=== PATIENT | male | born 1955 | race Caucasian/White ===

== ENCOUNTER 2019-04-17 13:27 | Observation (INO) | payer BC ==
--- NOTE | 2019-04-17 13:52 | EDM.PDOC ---
ED HPI GENERAL MEDICAL PROBLEM - General Chief Complaint: Neurological Problem Stated Complaint: MEMORY LOSS Time Seen by Provider: 04/17/19 13:32 Source of Information: Reports: Patient History Limitations: Reports: No Limitations - History of Present Illness INITIAL COMMENTS - FREE TEXT/NARRATIVE: History of present illness: []Patient arrived with acute memory loss. His boss and he cannot remember details of today. 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 Patient denies any chest pain, headache, dizziness, blurry vision , shortness of breath, weakness or numbness or tingling. he does recall an incident similar to this happened in the past and he was told that he might have early signs of dementia but "not to worry about it". Review of systems: As per history of present illness and below otherwise all systems reviewed and negative. Past medical history: As per history of present illness and as reviewed below otherwise noncontributory. Surgical history: As per history of present illness and as reviewed below otherwise noncontributory. Social history: No reported history of drug or alcohol abuse. Family history: As per history of present illness and as reviewed below otherwise noncontributory. Physical exam: General: Well developed, well nourished in NAD HEENT: Atraumatic, normocephalic, pupils reactive, negative for conjunctival pallor or scleral icterus, mucous membranes moist, throat clear, neck supple, nontender, trachea midline. Lungs: Clear to auscultation, breath sounds equal bilaterally, chest nontender. Heart: S1S2, regular, negative for clicks, rubs, or JVD. Abdomen: NABS, Soft, nondistended, nontender. Negative for masses or hepatosplenomegaly. Negative for costovertebral tenderness. Pelvis: Stable nontender. Genitourinary: Deferred. Rectal: Deferred. Extremities: Atraumatic, negative for cords or calf pain. Neurovascular unremarkable. Neuro: Awake, alert, Cranial nerves II through XII unremarkable. Cerebellum unremarkable. Motor and sensory unremarkable throughout. Exam nonfocal. Skin:warm and dry Diagnostics: stroke code was initially called and canceled, CT head, CBC, chemistry, TSH, UA , troponin, EKG, chest x-ray were done Therapeutics: none ED Course: stable, consulted Dr. Krishnan who evaluated the patient in the ED and will insult on the patient after being admitted to the hospitalist service. MRI will be obtained Impression: transient global amnesia Prescriptions: none Plan: admit to [facility] Definitive disposition and diagnosis as appropriate pending reevaluation and review of above. - Related Data Allergies Allergy/AdvReac Type Severity Reaction Status Date / Time No Known Allergies Allergy Verified 04/17/19 13:50 Home Meds: Home Meds Levothyroxine Sodium [Synthroid] 137 mcg PO ACBREAKFAST 04/17/19 [History] ED ROS GENERAL - Review of Systems Review Of Systems: See Below ED EXAM, NEURO - Physical Exam Exam: See Below Course - Vital Signs Last Recorded V/S: Last Vital Signs Temp 97.3 F 04/17/19 14:51 Pulse 73 04/17/19 15:02 Resp 18 04/17/19 15:02 BP 152/90 H 04/17/19 15:02 Pulse Ox 97 04/17/19 15:02 - Orders/Labs/Meds Orders: Active Orders 24 hr Category Date Time Status Admission Status [Patient Status] [ADT] Stat ADT 04/17/19 14:16 Active Assess Neurological Status [RC] ASDIRECTED Care 04/17/19 13:55 Inactive Bedrest [RC] ASDIRECTED Care 04/17/19 13:55 Inactive Cardiac Monitoring [RC] . DIRECTED Care 04/17/19 13:55 Inactive Height and Weight [RC] UPON Care 04/17/19 13:55 Inactive Initiate Acute Stroke Protocol [RC] STAT Care 04/17/19 13:55 Inactive NIH Stroke Scale [RC] ASDIRECTED Care 04/17/19 13:55 Inactive Nursing Bedside Swallow Screen [RC] ASDIRECTED Care 04/17/19 13:55 Inactive Oxygen Therapy [RC] ASDIRECTED Care 04/17/19 13:55 Inactive Stroke Education, General [RC] Click to Edit Care 04/17/19 13:55 Inactive Vital Signs [RC] Q15M Care 04/17/19 13:55 Inactive Sodium Chloride 0.9% [Normal Saline] Med 04/17/19 13:55 Active 10 ml IV ASDIRECTED PRN Sodium Chloride 0.9% [Saline Flush] Med 04/17/19 13:55 Active 10 ml FLUSH ASDIRECTED PRN Sodium Chloride 0.9% [Saline Flush] Med 04/17/19 13:55 Active 2.5 ml FLUSH ASDIRECTED PRN Peripheral IV Insertion Adult [OM.PC] Stat Oth 04/17/19 13:55 Ordered Medication Orders Acetaminophen (Tylenol) 650 mg PO Q4H PRN PRN Reason: Pain (Mild 1-3)/fever Enoxaparin Sodium (Lovenox) 40 mg SUBCUT Q24H XIANG Ondansetron HCl (Zofran Odt) 4 mg PO Q4H PRN PRN Reason: nausea, able to take PO Ondansetron HCl (Zofran) 4 mg IVPUSH Q4H PRN PRN Reason: Nausea Levothyroxine Sodium (137 Mcg) 1 each PO ACBREAKFAST XIANG Sodium Chloride (Saline Flush) 10 ml FLUSH ASDIRECTED PRN PRN Reason: Keep Vein Open Last Admin: 04/17/19 14:17 Dose: 10 ml Sodium Chloride (Saline Flush) 2.5 ml FLUSH ASDIRECTED PRN PRN Reason: Keep Vein Open Last Admin: 04/17/19 14:17 Dose: 2.5 ml Sodium Chloride (Normal Saline) 10 ml IV ASDIRECTED PRN PRN Reason: IV Use Last Admin: 04/17/19 14:17 Dose: 10 ml Labs: Laboratory Tests 04/17/19 04/17/19 04/17/19 Range/Units 13:36 13:36 13:36 WBC 7.23 (4.0-11.0) K/uL RBC 4.75 (4.50-5.90) M/uL Hgb 15.1 (13.0-17.0) g/dL Hct 44.4 (38.0-50.0) % MCV 93.5 (80.0-98.0) fL MCH 31.8 (27.0-32.0) pg MCHC 34.0 (31.0-37.0) g/dL RDW Std Deviation 44.2 (28.0-62.0) fl RDW Coeff of Amy 13 (11.0-15.0) % Plt Count 334 (150-400) K/uL MPV 9.50 (7.40-12.00) fL Neut % (Auto) 53.7 (48.0-80.0) % Lymph % (Auto) 36.7 (16.0-40.0) % Lucas % (Auto) 8.0 (0.0-15.0) % Eos % (Auto) 1.2 (0.0-7.0) % Baso % (Auto) 0.4 (0.0-1.5) % Neut # (Auto) 3.9 (1.4-5.7) K/uL Lymph # (Auto) 2.7 H (0.6-2.4) K/uL Lucas # (Auto) 0.6 (0.0-0.8) K/uL Eos # (Auto) 0.1 (0.0-0.7) K/uL Baso # (Auto) 0.0 (0.0-0.1) K/uL Nucleated RBC % 0.0 /100WBC Nucleated RBCs # 0 K/uL INR 0.92 APTT 24.6 (18.6-31.3) SEC Sodium 141 (136-148) mmol/L Potassium 3.9 (3.5-5.1) mmol/L Chloride 103 (98-107) mmol/L Carbon Dioxide 28.9 (21.0-32.0) mmol/L BUN 9 (7.0-18.0) mg/dL Creatinine 1.1 (0.8-1.3) mg/dL Est Cr Clr Drug Dosing 77.19 mL/min Estimated GFR (MDRD) > 60.0 ml/min Glucose 90 (74-106) mg/dL Calcium 9.3 (8.5-10.1) mg/dL Total Bilirubin 0.8 (0.2-1.0) mg/dL AST 28 (15-37) IU/L ALT 27 (14-63) IU/L Alkaline Phosphatase 46 (46-116) U/L Troponin I < 0.050 (0.000-0.056) ng/mL Total Protein 8.3 H (6.4-8.2) g/dL Albumin 4.5 (3.4-5.0) g/dL Globulin 3.8 (2.6-4.0) g/dL Albumin/Globulin Ratio 1.2 (0.9-1.6) TSH 3rd Generation 1.46 (0.36-3.74) uIU/mL Ethyl Alcohol mg/dL 11/07/19 Range/Units 13:36 WBC (4.0-11.0) K/uL RBC (4.50-5.90) M/uL Hgb (13.0-17.0) g/dL Hct (38.0-50.0) % MCV (80.0-98.0) fL MCH (27.0-32.0) pg MCHC (31.0-37.0) g/dL RDW Std Deviation (28.0-62.0) fl RDW Coeff of Amy (11.0-15.0) % Plt Count (150-400) K/uL MPV (7.40-12.00) fL Neut % (Auto) (48.0-80.0) % Lymph % (Auto) (16.0-40.0) % Lucas % (Auto) (0.0-15.0) % Eos % (Auto) (0.0-7.0) % Baso % (Auto) (0.0-1.5) % Neut # (Auto) (1.4-5.7) K/uL Lymph # (Auto) (0.6-2.4) K/uL Lucas # (Auto) (0.0-0.8) K/uL Eos # (Auto) (0.0-0.7) K/uL Baso # (Auto) (0.0-0.1) K/uL Nucleated RBC % /100WBC Nucleated RBCs # K/uL INR APTT (18.6-31.3) SEC Sodium (136-148) mmol/L Potassium (3.5-5.1) mmol/L Chloride (98-107) mmol/L Carbon Dioxide (21.0-32.0) mmol/L BUN (7.0-18.0) mg/dL Creatinine (0.8-1.3) mg/dL Est Cr Clr Drug Dosing mL/min Estimated GFR (MDRD) ml/min Glucose (74-106) mg/dL Calcium (8.5-10.1) mg/dL Total Bilirubin (0.2-1.0) mg/dL AST (15-37) IU/L ALT (14-63) IU/L Alkaline Phosphatase (46-116) U/L Troponin I (0.000-0.056) ng/mL Total Protein (6.4-8.2) g/dL Albumin (3.4-5.0) g/dL Globulin (2.6-4.0) g/dL Albumin/Globulin Ratio (0.9-1.6) TSH 3rd Generation (0.36-3.74) uIU/mL Ethyl Alcohol <3 mg/dL Meds: Medications Generic Name Dose Route Start Last Admin Trade Name Freq PRN Reason Stop Dose Admin Acetaminophen 650 mg 04/17/19 15:15 Tylenol PO Q4H PRN Pain (Mild 1-3)/fever Enoxaparin Sodium 40 mg 04/17/19 15:15 Lovenox SUBCUT Q24H XIANG Ondansetron HCl 4 mg 04/17/19 15:15 Zofran Odt PO Q4H PRN nausea, able to take PO Ondansetron HCl 4 mg 04/17/19 15:15 Zofran IVPUSH Q4H PRN Nausea Levothyroxine Sodium 1 each 04/18/19 07:30 137 Mcg PO ACBREAKFAST XIANG Sodium Chloride 10 ml 04/17/19 13:55 04/17/19 14:17 Saline Flush FLUSH 10 ml ASDIRECTED PRN Administration Keep Vein Open Sodium Chloride 2.5 ml 04/17/19 13:55 04/17/19 14:17 Saline Flush FLUSH 2.5 ml ASDIRECTED PRN Administration Keep Vein Open Sodium Chloride 10 ml 04/17/19 13:55 04/17/19 14:17 Normal Saline IV 10 ml ASDIRECTED PRN Administration IV Use Departure - Departure Time of Disposition: 14:45 Disposition: Refer to Observation Condition: Good Clinical Impression: TGA (transient global amnesia) - Discharge Information *PRESCRIPTION DRUG MONITORING PROGRAM REVIEWED*: No *COPY OF PRESCRIPTION DRUG MONITORING REPORT IN PATIENT GAYATHRI: No - My Orders Last 24 Hours: My Active Orders 04/17/19 13:55 Assess Neurological Status [RC] ASDIRECTED Bedrest [RC] ASDIRECTED Cardiac Monitoring [RC] . DIRECTED Height and Weight [RC] UPON Initiate Acute Stroke Protocol [RC] STAT NIH Stroke Scale [RC] ASDIRECTED Nursing Bedside Swallow Screen [RC] ASDIRECTED Oxygen Therapy [RC] ASDIRECTED Stroke Education, General [RC] Click to Edit Vital Signs [RC] Q15M Sodium Chloride 0.9% [Normal Saline] 10 ml IV ASDIRECTED PRN Sodium Chloride 0.9% [Saline Flush] 10 ml FLUSH ASDIRECTED PRN Sodium Chloride 0.9% [Saline Flush] 2.5 ml FLUSH ASDIRECTED PRN Peripheral IV Insertion Adult [OM.PC] Stat 04/17/19 14:16 Admission Status [Patient Status] [ADT] Stat - Assessment/Plan Last 24 Hours: My Active Orders 04/17/19 13:55 Assess Neurological Status [RC] ASDIRECTED Bedrest [RC] ASDIRECTED Cardiac Monitoring [RC] . DIRECTED Height and Weight [RC] UPON Initiate Acute Stroke Protocol [RC] STAT NIH Stroke Scale [RC] ASDIRECTED Nursing Bedside Swallow Screen [RC] ASDIRECTED Oxygen Therapy [RC] ASDIRECTED Stroke Education, General [RC] Click to Edit Vital Signs [RC] Q15M Sodium Chloride 0.9% [Normal Saline] 10 ml IV ASDIRECTED PRN Sodium Chloride 0.9% [Saline Flush] 10 ml FLUSH ASDIRECTED PRN Sodium Chloride 0.9% [Saline Flush] 2.5 ml FLUSH ASDIRECTED PRN Peripheral IV Insertion Adult [OM.PC] Stat 04/17/19 14:16 Admission Status [Patient Status] [ADT] Stat
[2019-04-17] MEDS ORDERED: Sodium Chloride 0.9% 2.5 ML Syringe FLUSH PRN (13:55)
[2019-04-17] MEDS ORDERED: Sodium Chloride 0.9% 10 ML Syringe FLUSH PRN (13:55)
[2019-04-17] MEDS ORDERED: Sodium Chloride 0.9% 10 ML SDV IV PRN (13:55)
--- NOTE | 2019-04-17 14:01 | CT ---
INDICATION: stroke code, amnesia CT HEAD WITHOUT CONTRAST TECHNIQUE: Multiple axial CT images were performed through the head without intravenous contrast administration. COMPARISON: No previous studies are currently available for comparison. FINDINGS: No acute intracranial hemorrhage is identified. No extra-axial collections are evident and there is no mass effect or midline shift. Ventricles are normal in size and configuration. Brain parenchyma appears normal with unremarkable louis-white differentiation. Osseous structures are within normal limits and no fractures are seen. Included portions of the paranasal sinuses and mastoid air cells are normally aerated. IMPRESSION: Normal non-contrast head CT. Report called to Dr. Bain at 1:52pm 04/17/2019. PAUL SMITH MD [facility] Dictated by: Hieu Smith MD @ 04/17/2019 13:59:02 (Electronically Signed)
[2019-04-17 14:22] LABS: BLOOD UREA NITROGEN,BUN 9 mg/dL (7.0-18.0); CARBON DIOXIDE,CO2 28.9 mmol/L (21.0-32.0); CHLORIDE,CL 103 mmol/L (98-107); GLUCOSE RANDOM 90 mg/dL (74-106); POTASSIUM,K 3.9 mmol/L (3.5-5.1); SODIUM,NA 141 mmol/L (136-148)
--- NOTE | 2019-04-17 15:09 | PCM.CONS ---
H&P History of Present Illness - General Date of Service: 04/17/19 Admit Problem/Dx: Admission Diagnosis/Problem Admission Diagnosis/Problem Transient global amnesia - History of Present Illness Initial Comments - Free Text/Narative: He recalls having soup for dinner last night and going to bed early. Memory of this morning is spotty. Mostly, he does not recall. Altered mental status was noted by colleague. He feels well otherwise. No weakness, numbness, headache, balance problems. - Related Data Allergies/Adverse Reactions: Allergies Allergy/AdvReac Type Severity Reaction Status Date / Time No Known Allergies Allergy Verified 04/17/19 13:50 Home Medications: Home Meds Levothyroxine Sodium [Synthroid] 137 mcg PO ACBREAKFAST 04/17/19 [History] Past Medical History - Past Health History Medical/Surgical History: Denies Medical/Surgical History Endocrine/Metabolic History: Reports: Hypothyroidism Social & Family History - Family History Family Medical History: Noncontributory - Tobacco Use Smoking Status *Q: Never Smoker - Recreational Drug Use Recreational Drug Use: No H&P Review of Systems - Review of Systems: Review Of Systems: ROS reveals no pertinent complaints other than HPI. Exam - Exam Exam: See Below - Vital Signs Vital Signs: Last Vital Signs Temp 36.3 C 04/17/19 14:51 Pulse 73 04/17/19 15:02 Resp 18 04/17/19 15:02 BP 152/90 H 04/17/19 15:02 Pulse Ox 97 04/17/19 15:02 Weight: 97.432 kg - Exam Physical Exam Comments:: Constitutional: No acute distress Psychiatric: Mood/Affect: appears anxious Neurological: Mental Status: General: Normal activity, good hygiene, appropriate appearance. Level of consciousness: Awake, alert. Orientation: Oriented to person, place, time and situation. Concentration/Attention Span: Normal. Comprehension/Praxis: Able to perform a three step command. Fund of Knowledge/memory: Impaired recall of same day events. He had no recollection of instructions Dr. Bain had given him less than 30 minutes previously. He repeated some questions more than once. Language: Fluent and articulate without evidence of aphasia or dysarthria. Thought Content: Normal. Insight/Judgement: Normal. Cranial Nerves: Pupils equally round and reactive to light. Visual main full to confrontation. No neglect. Gaze conjugate, EOMI. Sensation intact and symmetric to light touch. Facial strength is full and symmetric. Palate elevates symmetrically. Normal shrug bilaterally. Tongue protrudes midline Motor: Normal tone in all groups. Power 5/5 throughout Sensation: Sensation is decreased vibratory sense at left great toe, intact right great toe and bilateral knees. Light touch intact, symmetric and without extinction. Deep tendon reflexes: 1+ at ankles, trace at knees, 1+ in upper limbs Coordination: Finger to nose, heel to badillo intact Gait: Negative romberg Eyes: non icteric, Mouth: moist mucus membranes Cardiovascular: RRR Respiratory: clear lungs GI: non tender Musculoskeletal: non tender Skin: no visible rash - Patient Data Lab Results Last 24 hrs: Laboratory Results - last 24 hr 04/17/19 04/17/19 04/17/19 Range/Units 13:36 13:36 13:36 WBC 7.23 (4.0-11.0) K/uL RBC 4.75 (4.50-5.90) M/uL Hgb 15.1 (13.0-17.0) g/dL Hct 44.4 (38.0-50.0) % MCV 93.5 (80.0-98.0) fL MCH 31.8 (27.0-32.0) pg MCHC 34.0 (31.0-37.0) g/dL RDW Std Deviation 44.2 (28.0-62.0) fl RDW Coeff of Amy 13 (11.0-15.0) % Plt Count 334 (150-400) K/uL MPV 9.50 (7.40-12.00) fL Neut % (Auto) 53.7 (48.0-80.0) % Lymph % (Auto) 36.7 (16.0-40.0) % [place] % (Auto) 8.0 (0.0-15.0) % Eos % (Auto) 1.2 (0.0-7.0) % Baso % (Auto) 0.4 (0.0-1.5) % Neut # (Auto) 3.9 (1.4-5.7) K/uL Lymph # (Auto) 2.7 H (0.6-2.4) K/uL [place] # (Auto) 0.6 (0.0-0.8) K/uL Eos # (Auto) 0.1 (0.0-0.7) K/uL Baso # (Auto) 0.0 (0.0-0.1) K/uL Nucleated RBC % 0.0 /100WBC Nucleated RBCs # 0 K/uL INR 0.92 APTT 24.6 (18.6-31.3) SEC Sodium 141 (136-148) mmol/L Potassium 3.9 (3.5-5.1) mmol/L Chloride 103 (98-107) mmol/L Carbon Dioxide 28.9 (21.0-32.0) mmol/L BUN 9 (7.0-18.0) mg/dL Creatinine 1.1 (0.8-1.3) mg/dL Est Cr Clr Drug Dosing 77.19 mL/min Estimated GFR (MDRD) > 60.0 ml/min Glucose 90 (74-106) mg/dL Calcium 9.3 (8.5-10.1) mg/dL Total Bilirubin 0.8 (0.2-1.0) mg/dL AST 28 (15-37) IU/L ALT 27 (14-63) IU/L Alkaline Phosphatase 46 (46-116) U/L Troponin I < 0.050 (0.000-0.056) ng/mL Total Protein 8.3 H (6.4-8.2) g/dL Albumin 4.5 (3.4-5.0) g/dL Globulin 3.8 (2.6-4.0) g/dL Albumin/Globulin Ratio 1.2 (0.9-1.6) TSH 3rd Generation 1.46 (0.36-3.74) uIU/mL Result Diagrams: 04/17/19 13:36 04/17/19 13:36 Consult PN Assessment/Plan (1) TGA (transient global amnesia) SNOMED Code(s): 701198190 Code(s): G45.4 - TRANSIENT GLOBAL AMNESIA Current Visit: Yes Assessment:: Assessment: Acute onset anterograde amnesia, likely TGA. Recommendations Admit for observation MRI brain w and w/o contrast Problem List Initiated/Reviewed/Updated: Yes
[2019-04-17] MEDS ORDERED: Acetaminophen 325 MG Tab PO PRN (15:15)
[2019-04-17] MEDS ORDERED: Ondansetron 4 MG/2 ML SDV IVPUSH PRN (15:15)
[2019-04-17] MEDS ORDERED: Enoxaparin 40 MG/0.4 ML Syringe SUBCUT SCH (15:15)
[2019-04-17] MEDS ORDERED: Ondansetron 4 MG Tab.DIS PO PRN (15:15)
--- NOTE | 2019-04-17 15:26 | PCM.HP.2 ---
H&P History of Present Illness - General Date of Service: 04/17/19 Admit Problem/Dx: Admission Diagnosis/Problem Admission Diagnosis/Problem Transient global amnesia - History of Present Illness Initial Comments - Free Text/Narative: 63 y/o male with history of hypothyroidism presenting today to the ER for memory problems. Patient states he does not recollect a specific time frame in the morning. He was brought to the ER by his co-worker. Patient states something similar like this happened before and he blames it on food poisoning. Today, he is alert and oriented to person, place, time and situation. CT head was negative for any intracranial hemorrhage. No focal neurological deficits on exam. He states he is from [place], [place]. His and family are there. Denies any trauma to head. No change in vision, nausea, vomiting, chest pain, dyspnea, abdominal pain, dysuria, diarrhea. No problems ambulating. Drinks alcohol occasionally. No smoking or illicit drug use. Denies any family history of Parkinson's or Alzheimer's. No visual or auditory hallucinations. - Related Data Allergies/Adverse Reactions: Allergies Allergy/AdvReac Type Severity Reaction Status Date / Time No Known Allergies Allergy Verified 04/17/19 15:43 Home Medications: Home Meds Levothyroxine Sodium [Synthroid] 137 mcg PO ACBREAKFAST 04/17/19 [History] Past Medical History - Past Health History Medical/Surgical History: Denies Medical/Surgical History Genitourinary History: Reports: Other (See Below) Other Genitourinary History: small hernia Musculoskeletal History: Reports: Fracture Neurological History: Reports: Other (See Below) Other Neuro History: previous episode of memory loss 2012 or 2013 Endocrine/Metabolic History: Reports: Hypothyroidism - Past Surgical History Other Musculoskeletal Surgeries/Procedures:: fx neck vertebrae Social & Family History - Family History Family Medical History: Noncontributory - Tobacco Use Smoking Status *Q: Never Smoker Used Tobacco, but Quit: Yes Month/Year Tobacco Last Used: 1989 Second Hand Smoke Exposure: No - Caffeine Use Caffeine Use: Reports: Coffee - Recreational Drug Use Recreational Drug Use: No H&P Review of Systems - Review of Systems: Review Of Systems: ROS reveals no pertinent complaints other than HPI. Exam - Exam Exam: See Below - Vital Signs Vital Signs: Last Vital Signs Temp 36.3 C 04/17/19 14:51 Pulse 73 04/17/19 15:02 Resp 18 04/17/19 15:02 BP 152/90 H 04/17/19 15:02 Pulse Ox 97 04/17/19 15:02 Weight: 97.432 kg - Exam General: Alert, Oriented, Cooperative HEENT: Conjunctiva Clear Lungs: Clear to Auscultation, Normal Respiratory Effort. No: Crackles, Wheezing Cardiovascular: Regular Rate, Regular Rhythm GI/Abdominal Exam: Normal Bowel Sounds, Soft, Non-Tender, No Distention Back Exam: Normal Inspection. No: CVA Tenderness (L), CVA Tenderness (R) Extremities: Normal Inspection, No Pedal Edema Skin: Warm, Dry Neurological: Cranial Nerves Intact Neuro Extensive - Mental Status: Alert, Oriented x3 Neuro Extensive - Motor, Sensory, Reflexes: CN II-XII Intact - Patient Data Lab Results Last 24 hrs: Laboratory Results - last 24 hr 04/17/19 04/17/19 04/17/19 Range/Units 13:36 13:36 13:36 WBC 7.23 (4.0-11.0) K/uL RBC 4.75 (4.50-5.90) M/uL Hgb 15.1 (13.0-17.0) g/dL Hct 44.4 (38.0-50.0) % MCV 93.5 (80.0-98.0) fL MCH 31.8 (27.0-32.0) pg MCHC 34.0 (31.0-37.0) g/dL RDW Std Deviation 44.2 (28.0-62.0) fl RDW Coeff of Amy 13 (11.0-15.0) % Plt Count 334 (150-400) K/uL MPV 9.50 (7.40-12.00) fL Neut % (Auto) 53.7 (48.0-80.0) % Lymph % (Auto) 36.7 (16.0-40.0) % [place] % (Auto) 8.0 (0.0-15.0) % Eos % (Auto) 1.2 (0.0-7.0) % Baso % (Auto) 0.4 (0.0-1.5) % Neut # (Auto) 3.9 (1.4-5.7) K/uL Lymph # (Auto) 2.7 H (0.6-2.4) K/uL [place] # (Auto) 0.6 (0.0-0.8) K/uL Eos # (Auto) 0.1 (0.0-0.7) K/uL Baso # (Auto) 0.0 (0.0-0.1) K/uL Nucleated RBC % 0.0 /100WBC Nucleated RBCs # 0 K/uL INR 0.92 APTT 24.6 (18.6-31.3) SEC Sodium 141 (136-148) mmol/L Potassium 3.9 (3.5-5.1) mmol/L Chloride 103 (98-107) mmol/L Carbon Dioxide 28.9 (21.0-32.0) mmol/L BUN 9 (7.0-18.0) mg/dL Creatinine 1.1 (0.8-1.3) mg/dL Est Cr Clr Drug Dosing 77.19 mL/min Estimated GFR (MDRD) > 60.0 ml/min Glucose 90 (74-106) mg/dL Calcium 9.3 (8.5-10.1) mg/dL Total Bilirubin 0.8 (0.2-1.0) mg/dL AST 28 (15-37) IU/L ALT 27 (14-63) IU/L Alkaline Phosphatase 46 (46-116) U/L Troponin I < 0.050 (0.000-0.056) ng/mL Total Protein 8.3 H (6.4-8.2) g/dL Albumin 4.5 (3.4-5.0) g/dL Globulin 3.8 (2.6-4.0) g/dL Albumin/Globulin Ratio 1.2 (0.9-1.6) TSH 3rd Generation 1.46 (0.36-3.74) uIU/mL Result Diagrams: 04/17/19 13:36 04/17/19 13:36 Problem List Initiated/Reviewed/Updated: Yes Orders Last 24hrs: Active Orders 24 hr Category Date Time Status Admission Status [Patient Status] [ADT] Stat ADT 04/17/19 14:16 Active Patient Status [ADT] Routine ADT 04/17/19 15:16 Active Assess Neurological Status [RC] ASDIRECTED Care 04/17/19 13:55 Inactive Bedrest [RC] ASDIRECTED Care 04/17/19 13:55 Inactive Cardiac Monitoring [RC] . DIRECTED Care 04/17/19 13:55 Inactive Height and Weight [RC] UPON Care 04/17/19 13:55 Inactive Initiate Acute Stroke Protocol [RC] STAT Care 04/17/19 13:55 Inactive Intake and Output [RC] QSHIFT Care 04/17/19 15:18 Active NIH Stroke Scale [RC] ASDIRECTED Care 04/17/19 13:55 Inactive Notify Provider Consults [RC] ASDIRECTED Care 04/17/19 15:24 Ordered Nursing Bedside Swallow Screen [RC] ASDIRECTED Care 04/17/19 13:55 Inactive Oxygen Therapy [RC] ASDIRECTED Care 04/17/19 13:55 Inactive Oxygen Therapy [RC] PRN Care 04/17/19 15:16 Active Stroke Education, General [RC] Click to Edit Care 04/17/19 13:55 Inactive Up ad Valery [RC] ASDIRECTED Care 04/17/19 15:15 Active VTE/DVT Education [RC] PER UNIT ROUTINE Care 04/17/19 15:16 Active Vital Signs [RC] Q15M Care 04/17/19 13:55 Inactive Vital Signs [RC] Q4H Care 04/17/19 15:16 Active Consult to Physician [CONS] Routine Cons 04/17/19 15:24 Ordered Regular Diet [DIET] Diet 04/17/19 Dinner Active Brain w wo Cont [MR] Routine Exams 04/17/19 15:22 Ordered Blood Alcohol [ETHANOL BLOOD MEDICAL] [CHEM] Routine Lab 04/17/19 15:21 Ordered CBC WITH AUTO DIFF [HEME] AM Lab 04/18/19 05:11 Ordered CBC WITH AUTO DIFF [HEME] AM Lab 04/19/19 05:11 Ordered COMPREHENSIVE METABOLIC PN,CMP [CHEM] AM Lab 04/18/19 05:11 Ordered COMPREHENSIVE METABOLIC PN,CMP [CHEM] AM Lab 04/19/19 05:11 Ordered DRUG SCREEN, URINE [URCHEM] Routine Lab 04/17/19 15:20 Ordered FOLIC ACID [CHEM] Routine Lab 04/17/19 15:23 Ordered VITAMIN B12 [CHEM] Routine Lab 04/17/19 15:23 Ordered Acetaminophen [Tylenol] Med 04/17/19 15:15 Active 650 mg PO Q4H PRN Enoxaparin [Lovenox] Med 04/17/19 15:15 Active 40 mg SUBCUT Q24H Levothyroxine Sodium Med 04/18/19 07:30 Ordered 137 mcg PO ACBREAKFAST Ondansetron [Zofran ODT] Med 04/17/19 15:15 Ordered 4 mg PO Q4H PRN Ondansetron [Zofran] Med 04/17/19 15:15 Ordered 4 mg IVPUSH Q4H PRN Sodium Chloride 0.9% [Normal Saline] Med 04/17/19 13:55 Active 10 ml IV ASDIRECTED PRN Sodium Chloride 0.9% [Saline Flush] Med 04/17/19 13:55 Active 10 ml FLUSH ASDIRECTED PRN Sodium Chloride 0.9% [Saline Flush] Med 04/17/19 13:55 Active 2.5 ml FLUSH ASDIRECTED PRN Peripheral IV Insertion Adult [OM.PC] Stat Oth 04/17/19 13:55 Ordered Resuscitation Status Routine Resus Stat 04/17/19 15:15 Ordered Medication Orders Acetaminophen (Tylenol) 650 mg PO Q4H PRN PRN Reason: Pain (Mild 1-3)/fever Enoxaparin Sodium (Lovenox) 40 mg SUBCUT Q24H [facility] Non-Formulary Medication (Levothyroxine Sodium) 137 mcg PO ACBREAKFAST [facility] Ondansetron HCl (Zofran Odt) 4 mg PO Q4H PRN PRN Reason: nausea, able to take PO Ondansetron HCl (Zofran) 4 mg IVPUSH Q4H PRN PRN Reason: Nausea Sodium Chloride (Saline Flush) 10 ml FLUSH ASDIRECTED PRN PRN Reason: Keep Vein Open Last Admin: 04/17/19 14:17 Dose: 10 ml Sodium Chloride (Saline Flush) 2.5 ml FLUSH ASDIRECTED PRN PRN Reason: Keep Vein Open Last Admin: 04/17/19 14:17 Dose: 2.5 ml Sodium Chloride (Normal Saline) 10 ml IV ASDIRECTED PRN PRN Reason: IV Use Last Admin: 04/17/19 14:17 Dose: 10 ml Assessment/Plan Comment:: A: 1. Transient global amnesia 2. PMH hypothyroidism P: 1. Transient global amnesia- Dr. Krishnan has been consulted. Will get MRI brain w/wo contrast. Ordered urine drug screen. B12 and folic acid levels. 2. Hypothyroidism- continue levothyroxine. Dispo: 1-2 days
[2019-04-17] MEDS ORDERED: Gadobenate Dimeglumine 529 MG/ML 20 ML SDV IVPUSH STA (16:12)
[2019-04-17] MEDS ORDERED: Sodium Chloride 0.9% 1,000 ML IV ONE (16:16)
[2019-04-18 05:42] LABS: BLOOD UREA NITROGEN,BUN 8 mg/dL (7.0-18.0); CARBON DIOXIDE,CO2 25.5 mmol/L (21.0-32.0); CHLORIDE,CL 108 mmol/L (98-107); GLUCOSE RANDOM 89 mg/dL (74-106); POTASSIUM,K 3.9 mmol/L (3.5-5.1); SODIUM,NA 142 mmol/L (136-148)
[2019-04-18] MEDS ORDERED: Levothyroxine 112 MCG Tab PO SCH (07:30)
[2019-04-18] MEDS ORDERED: LEVOTHYROXINE SODIUM 137 MCG PO SCH (07:30)
[2019-04-18] MEDS ORDERED: Levothyroxine 25 MCG Tab PO SCH (07:30)
--- NOTE | 2019-04-18 09:01 | PCM.PN ---
- General Info Date of Service: 04/18/19 Subjective Update: no acute events overnight. doing well this morning. Alert and oriented x4. pending MRI results. - Patient Data Vitals - Most Recent: Last Vital Signs Temp 35.9 C 04/18/19 07:20 Pulse 57 L 04/18/19 07:20 Resp 14 04/18/19 07:20 BP 129/78 04/18/19 07:20 Pulse Ox 95 04/18/19 07:20 Weight - Most Recent: 97.432 kg I&O - Last 24 Hours: Intake & Output 04/17/19 04/18/19 04/18/19 22:59 06:59 14:59 Intake Total 1000 350 Output Total 550 600 Balance 450 -250 Lab Results Last 24 Hours: Laboratory Results - last 24 hr 04/17/19 04/17/19 04/17/19 Range/Units 13:36 13:36 13:36 WBC 7.23 (4.0-11.0) K/uL RBC 4.75 (4.50-5.90) M/uL Hgb 15.1 (13.0-17.0) g/dL Hct 44.4 (38.0-50.0) % MCV 93.5 (80.0-98.0) fL MCH 31.8 (27.0-32.0) pg MCHC 34.0 (31.0-37.0) g/dL RDW Std Deviation 44.2 (28.0-62.0) fl RDW Coeff of Amy 13 (11.0-15.0) % Plt Count 334 (150-400) K/uL MPV 9.50 (7.40-12.00) fL Neut % (Auto) 53.7 (48.0-80.0) % Lymph % (Auto) 36.7 (16.0-40.0) % [place] % (Auto) 8.0 (0.0-15.0) % Eos % (Auto) 1.2 (0.0-7.0) % Baso % (Auto) 0.4 (0.0-1.5) % Neut # (Auto) 3.9 (1.4-5.7) K/uL Lymph # (Auto) 2.7 H (0.6-2.4) K/uL [place] # (Auto) 0.6 (0.0-0.8) K/uL Eos # (Auto) 0.1 (0.0-0.7) K/uL Baso # (Auto) 0.0 (0.0-0.1) K/uL Nucleated RBC % 0.0 /100WBC Nucleated RBCs # 0 K/uL INR 0.92 APTT 24.6 (18.6-31.3) SEC Sodium 141 (136-148) mmol/L Potassium 3.9 (3.5-5.1) mmol/L Chloride 103 (98-107) mmol/L Carbon Dioxide 28.9 (21.0-32.0) mmol/L BUN 9 (7.0-18.0) mg/dL Creatinine 1.1 (0.8-1.3) mg/dL Est Cr Clr Drug Dosing 77.19 mL/min Estimated GFR (MDRD) > 60.0 ml/min Glucose 90 (74-106) mg/dL Calcium 9.3 (8.5-10.1) mg/dL Total Bilirubin 0.8 (0.2-1.0) mg/dL AST 28 (15-37) IU/L ALT 27 (14-63) IU/L Alkaline Phosphatase 46 (46-116) U/L Troponin I < 0.050 (0.000-0.056) ng/mL Total Protein 8.3 H (6.4-8.2) g/dL Albumin 4.5 (3.4-5.0) g/dL Globulin 3.8 (2.6-4.0) g/dL Albumin/Globulin Ratio 1.2 (0.9-1.6) Vitamin B12 (193-986) pg/mL Folate (8.60-58.90) ng/mL TSH 3rd Generation 1.46 (0.36-3.74) uIU/mL Urine Opiates Screen (NEGATIVE) Ur Oxycodone Screen (NEGATIVE) Urine Methadone Screen (NEGATIVE) Ur Barbiturates Screen (NEGATIVE) Ur Phencyclidine Scrn (NEGATIVE) Ur Amphetamine Screen (NEGATIVE) U Methamphetamines Scrn (NEGATIVE) U Benzodiazepines Scrn (NEGATIVE) U Cocaine Metab Screen (NEGATIVE) U Marijuana (THC) Screen (NEGATIVE) Ethyl Alcohol mg/dL 04/17/19 04/17/19 04/17/19 Range/Units 13:36 13:36 16:50 WBC (4.0-11.0) K/uL RBC (4.50-5.90) M/uL Hgb (13.0-17.0) g/dL Hct (38.0-50.0) % MCV (80.0-98.0) fL MCH (27.0-32.0) pg MCHC (31.0-37.0) g/dL RDW Std Deviation (28.0-62.0) fl RDW Coeff of Amy (11.0-15.0) % Plt Count (150-400) K/uL MPV (7.40-12.00) fL Neut % (Auto) (48.0-80.0) % Lymph % (Auto) (16.0-40.0) % [place] % (Auto) (0.0-15.0) % Eos % (Auto) (0.0-7.0) % Baso % (Auto) (0.0-1.5) % Neut # (Auto) (1.4-5.7) K/uL Lymph # (Auto) (0.6-2.4) K/uL [place] # (Auto) (0.0-0.8) K/uL Eos # (Auto) (0.0-0.7) K/uL Baso # (Auto) (0.0-0.1) K/uL Nucleated RBC % /100WBC Nucleated RBCs # K/uL INR APTT (18.6-31.3) SEC Sodium (136-148) mmol/L Potassium (3.5-5.1) mmol/L Chloride (98-107) mmol/L Carbon Dioxide (21.0-32.0) mmol/L BUN (7.0-18.0) mg/dL Creatinine (0.8-1.3) mg/dL Est Cr Clr Drug Dosing mL/min Estimated GFR (MDRD) ml/min Glucose (74-106) mg/dL Calcium (8.5-10.1) mg/dL Total Bilirubin (0.2-1.0) mg/dL AST (15-37) IU/L ALT (14-63) IU/L Alkaline Phosphatase (46-116) U/L Troponin I (0.000-0.056) ng/mL Total Protein (6.4-8.2) g/dL Albumin (3.4-5.0) g/dL Globulin (2.6-4.0) g/dL Albumin/Globulin Ratio (0.9-1.6) Vitamin B12 458 (193-986) pg/mL Folate 17.80 (8.60-58.90) ng/mL TSH 3rd Generation (0.36-3.74) uIU/mL Urine Opiates Screen NEGATIVE (NEGATIVE) Ur Oxycodone Screen NEGATIVE (NEGATIVE) Urine Methadone Screen NEGATIVE (NEGATIVE) Ur Barbiturates Screen NEGATIVE (NEGATIVE) Ur Phencyclidine Scrn NEGATIVE (NEGATIVE) Ur Amphetamine Screen NEGATIVE (NEGATIVE) U Methamphetamines Scrn NEGATIVE (NEGATIVE) U Benzodiazepines Scrn NEGATIVE (NEGATIVE) U Cocaine Metab Screen NEGATIVE (NEGATIVE) U Marijuana (THC) Screen NEGATIVE (NEGATIVE) Ethyl Alcohol <3 mg/dL 04/18/19 04/18/19 Range/Units 05:07 05:07 WBC 5.92 (4.0-11.0) K/uL RBC 4.49 L (4.50-5.90) M/uL Hgb 14.1 (13.0-17.0) g/dL Hct 41.7 (38.0-50.0) % MCV 92.9 (80.0-98.0) fL MCH 31.4 (27.0-32.0) pg MCHC 33.8 (31.0-37.0) g/dL RDW Std Deviation 42.9 (28.0-62.0) fl RDW Coeff of Amy 13 (11.0-15.0) % Plt Count 274 (150-400) K/uL MPV 9.30 (7.40-12.00) fL Neut % (Auto) 58.8 (48.0-80.0) % Lymph % (Auto) 28.5 (16.0-40.0) % [place] % (Auto) 9.6 (0.0-15.0) % Eos % (Auto) 2.4 (0.0-7.0) % Baso % (Auto) 0.7 (0.0-1.5) % Neut # (Auto) 3.5 (1.4-5.7) K/uL Lymph # (Auto) 1.7 (0.6-2.4) K/uL [place] # (Auto) 0.6 (0.0-0.8) K/uL Eos # (Auto) 0.1 (0.0-0.7) K/uL Baso # (Auto) 0.0 (0.0-0.1) K/uL Nucleated RBC % 0.0 /100WBC Nucleated RBCs # 0 K/uL INR APTT (18.6-31.3) SEC Sodium 142 (136-148) mmol/L Potassium 3.9 (3.5-5.1) mmol/L Chloride 108 H (98-107) mmol/L Carbon Dioxide 25.5 (21.0-32.0) mmol/L BUN 8 (7.0-18.0) mg/dL Creatinine 1.0 (0.8-1.3) mg/dL Est Cr Clr Drug Dosing 85.45 mL/min Estimated GFR (MDRD) > 60.0 ml/min Glucose 89 (74-106) mg/dL Calcium 8.3 L (8.5-10.1) mg/dL Total Bilirubin 0.9 (0.2-1.0) mg/dL AST 18 (15-37) IU/L ALT 22 (14-63) IU/L Alkaline Phosphatase 40 L (46-116) U/L Troponin I (0.000-0.056) ng/mL Total Protein 6.8 (6.4-8.2) g/dL Albumin 3.6 (3.4-5.0) g/dL Globulin 3.2 (2.6-4.0) g/dL Albumin/Globulin Ratio 1.1 (0.9-1.6) Vitamin B12 (193-986) pg/mL Folate (8.60-58.90) ng/mL TSH 3rd Generation (0.36-3.74) uIU/mL Urine Opiates Screen (NEGATIVE) Ur Oxycodone Screen (NEGATIVE) Urine Methadone Screen (NEGATIVE) Ur Barbiturates Screen (NEGATIVE) Ur Phencyclidine Scrn (NEGATIVE) Ur Amphetamine Screen (NEGATIVE) U Methamphetamines Scrn (NEGATIVE) U Benzodiazepines Scrn (NEGATIVE) U Cocaine Metab Screen (NEGATIVE) U Marijuana (THC) Screen (NEGATIVE) Ethyl Alcohol mg/dL Med Orders - Current: Current Medications Acetaminophen (Tylenol) 650 mg PO Q4H PRN PRN Reason: Pain (Mild 1-3)/fever Enoxaparin Sodium (Lovenox) 40 mg SUBCUT Q24H [facility] Last Admin: 04/17/19 16:47 Dose: 40 mg Levothyroxine Sodium (Levothyroxine) 112 mcg PO ACBREAKFAST [facility] Last Admin: 04/18/19 08:45 Dose: 112 mcg Levothyroxine Sodium (Levothyroxine) 25 mcg PO ACBREAKFAST [facility] Last Admin: 04/18/19 08:45 Dose: 25 mcg Ondansetron HCl (Zofran Odt) 4 mg PO Q4H PRN PRN Reason: nausea, able to take PO Ondansetron HCl (Zofran) 4 mg IVPUSH Q4H PRN PRN Reason: Nausea Sodium Chloride (Saline Flush) 10 ml FLUSH ASDIRECTED PRN PRN Reason: Keep Vein Open Last Admin: 04/17/19 14:17 Dose: 10 ml Sodium Chloride (Saline Flush) 2.5 ml FLUSH ASDIRECTED PRN PRN Reason: Keep Vein Open Last Admin: 04/17/19 14:17 Dose: 2.5 ml Sodium Chloride (Normal Saline) 10 ml IV ASDIRECTED PRN PRN Reason: IV Use Last Admin: 04/17/19 14:17 Dose: 10 ml Discontinued Medications Gadobenate Dimeglumine (Multihance) 19 ml IVPUSH ONETIME STA Stop: 04/17/19 16:13 Last Admin: 04/17/19 16:13 Dose: 19 ml Sodium Chloride (Normal Saline) 1,000 mls @ 999 mls/hr IV .Bolus ONE Stop: 04/17/19 17:16 Last Admin: 04/17/19 16:47 Dose: 999 mls/hr Levothyroxine Sodium (137 Mcg) 1 each PO ACBREAKFAST [facility] Last Admin: 04/18/19 06:44 Dose: Not Given - Exam General: Alert, Oriented, Cooperative, No Acute Distress Lungs: Clear to Auscultation, Normal Respiratory Effort. No: Crackles, Wheezing Cardiovascular: Regular Rate, Regular Rhythm GI/Abdominal Exam: Normal Bowel Sounds, Soft, Non-Tender, No Distention Extremities: Normal Inspection, No Pedal Edema Skin: Warm, Dry Neurological: No New Focal Deficit - Problem List Review Problem List Initiated/Reviewed/Updated: Yes - My Orders Last 24 Hours: My Active Orders 04/17/19 15:15 Up ad Valery [RC] ASDIRECTED Acetaminophen [Tylenol] 650 mg PO Q4H PRN Enoxaparin [Lovenox] 40 mg SUBCUT Q24H Ondansetron [Zofran ODT] 4 mg PO Q4H PRN Ondansetron [Zofran] 4 mg IVPUSH Q4H PRN Resuscitation Status Routine 04/17/19 15:16 Patient Status [ADT] Routine Oxygen Therapy [RC] PRN VTE/DVT Education [RC] PER UNIT ROUTINE Vital Signs [RC] Q4H 04/17/19 15:18 Intake and Output [RC] QSHIFT 04/17/19 15:22 Brain w wo Cont [MR] Routine 04/17/19 15:24 Notify Provider Consults [RC] ASDIRECTED Consult to Physician [CONS] Routine 04/17/19 Dinner Regular Diet [DIET] 04/18/19 07:30 Levothyroxine 112 mcg PO ACBREAKFAST Levothyroxine 25 mcg PO ACBREAKFAST 04/19/19 05:11 CBC WITH AUTO DIFF [HEME] AM COMPREHENSIVE METABOLIC PN,CMP [CHEM] AM - Plan Plan:: A: 1. Transient global amnesia 2. PMH hypothyroidism P: Pending MRI results. Will speak with Dr. Krishnan. Will plan to DC later today if normal MRI. Follow-up with Dr. Krishnan.
--- NOTE | 2019-04-18 12:10 | MR ---
MRI brain (without and with intravenous contrast) Technique: T1 sagittal; T2, FLAIR, T1 and diffusion axial; T1 coronal; postcontrast T1 fat-suppressed sagittal, coronal and axial images Comparison: No prior intracranial imaging is available. Findings: Ventricles along with basal cisterns and sulci over the convexities appear within normal limits for the patient's age. No abnormal signal is seen within the brain parenchyma. No midline shift or mass effect is seen. Normal signal void is seen within the major cerebral arteries within the skull base. No acute diffusion abnormalities are appreciated. No abnormal areas of enhancement are seen. Impression: No abnormality is identified on MRI study of the brain. Diagnostic code #1 [id number]
--- NOTE | 2019-04-18 13:11 | PCM.DCSUM1 ---
Discharge Summary - Hospital Course Free Text/Narrative:: 63 y/o male with history of hypothyroidism presented to the ER accompanied by co-worker. Apparently, patient was at work and he states he does not remember a particular time frame at work. Stroke code was called in the ER. CT head was negative for any intracranial hemorrhage. Patient did not have any focal neurological deficits other than amnesia. Dr. Krishnan, Neurology was consulted who recommended MRI head w/wo contrast. Patient was admitted for transient global amnesia. He remained hemodynamically stable during this hospitalization. MRI did not show any abnormalities. Patient was discharged the next day without work restrictions. He was alert and oriented x4. He was advised to follow-up with his PCP. - Discharge Data Discharge Date: 04/18/19 Discharge Disposition: Home, Self-Care 01 Condition: Good - Referral to Home Health Primary Care Physician: PCP Unobtainable - Patient Summary/Data Consults: Consultations 04/17/19 15:24 Consult to Physician [CONS] Routine - Patient Instructions Diet: Regular Diet as Tolerated Activity: As Tolerated Notify Provider of: Fever, Increased Pain, Swelling and Redness, Nausea and/or Vomiting - Discharge Plan *PRESCRIPTION DRUG MONITORING PROGRAM REVIEWED*: No *COPY OF PRESCRIPTION DRUG MONITORING REPORT IN PATIENT GAYATHRI: No Home Medications: Home Meds Levothyroxine Sodium [Synthroid] 137 mcg PO ACBREAKFAST 04/17/19 [History] Patient Handouts: Transient Global Amnesia, Confusion Referrals: Lexie Krishnan MD [Physician] - 04/22/19 9:00 am - Discharge Summary/Plan Comment DC Time >30 min.: No - Patient Data Vitals - Most Recent: Last Vital Signs Temp 36.2 C 04/18/19 12:00 Pulse 62 04/18/19 12:00 Resp 18 04/18/19 12:00 BP 129/74 04/18/19 12:00 Pulse Ox 96 04/18/19 12:00 Weight - Most Recent: 97.432 kg I&O - Last 24 hours: Intake & Output 04/17/19 04/18/19 04/18/19 22:59 06:59 14:59 Intake Total 1000 350 Output Total 550 600 Balance 450 -250 Lab Results - Last 24 hrs: Laboratory Results - last 24 hr 11/07/19 11/07/19 11/07/19 Range/Units 13:36 13:36 13:36 WBC 7.23 (4.0-11.0) K/uL RBC 4.75 (4.50-5.90) M/uL Hgb 15.1 (13.0-17.0) g/dL Hct 44.4 (38.0-50.0) % MCV 93.5 (80.0-98.0) fL MCH 31.8 (27.0-32.0) pg MCHC 34.0 (31.0-37.0) g/dL RDW Std Deviation 44.2 (28.0-62.0) fl RDW Coeff of Amy 13 (11.0-15.0) % Plt Count 334 (150-400) K/uL MPV 9.50 (7.40-12.00) fL Neut % (Auto) 53.7 (48.0-80.0) % Lymph % (Auto) 36.7 (16.0-40.0) % [place] % (Auto) 8.0 (0.0-15.0) % Eos % (Auto) 1.2 (0.0-7.0) % Baso % (Auto) 0.4 (0.0-1.5) % Neut # (Auto) 3.9 (1.4-5.7) K/uL Lymph # (Auto) 2.7 H (0.6-2.4) K/uL [place] # (Auto) 0.6 (0.0-0.8) K/uL Eos # (Auto) 0.1 (0.0-0.7) K/uL Baso # (Auto) 0.0 (0.0-0.1) K/uL Nucleated RBC % 0.0 /100WBC Nucleated RBCs # 0 K/uL INR 0.92 APTT 24.6 (18.6-31.3) SEC Sodium 141 (136-148) mmol/L Potassium 3.9 (3.5-5.1) mmol/L Chloride 103 (98-107) mmol/L Carbon Dioxide 28.9 (21.0-32.0) mmol/L BUN 9 (7.0-18.0) mg/dL Creatinine 1.1 (0.8-1.3) mg/dL Est Cr Clr Drug Dosing 77.19 mL/min Estimated GFR (MDRD) > 60.0 ml/min Glucose 90 (74-106) mg/dL Calcium 9.3 (8.5-10.1) mg/dL Total Bilirubin 0.8 (0.2-1.0) mg/dL AST 28 (15-37) IU/L ALT 27 (14-63) IU/L Alkaline Phosphatase 46 (46-116) U/L Troponin I < 0.050 (0.000-0.056) ng/mL Total Protein 8.3 H (6.4-8.2) g/dL Albumin 4.5 (3.4-5.0) g/dL Globulin 3.8 (2.6-4.0) g/dL Albumin/Globulin Ratio 1.2 (0.9-1.6) Vitamin B12 (193-986) pg/mL Folate (8.60-58.90) ng/mL TSH 3rd Generation 1.46 (0.36-3.74) uIU/mL Urine Opiates Screen (NEGATIVE) Ur Oxycodone Screen (NEGATIVE) Urine Methadone Screen (NEGATIVE) Ur Barbiturates Screen (NEGATIVE) Ur Phencyclidine Scrn (NEGATIVE) Ur Amphetamine Screen (NEGATIVE) U Methamphetamines Scrn (NEGATIVE) U Benzodiazepines Scrn (NEGATIVE) U Cocaine Metab Screen (NEGATIVE) U Marijuana (THC) Screen (NEGATIVE) Ethyl Alcohol mg/dL 04/17/19 04/17/19 04/17/19 Range/Units 13:36 13:36 16:50 WBC (4.0-11.0) K/uL RBC (4.50-5.90) M/uL Hgb (13.0-17.0) g/dL Hct (38.0-50.0) % MCV (80.0-98.0) fL MCH (27.0-32.0) pg MCHC (31.0-37.0) g/dL RDW Std Deviation (28.0-62.0) fl RDW Coeff of Amy (11.0-15.0) % Plt Count (150-400) K/uL MPV (7.40-12.00) fL Neut % (Auto) (48.0-80.0) % Lymph % (Auto) (16.0-40.0) % [place] % (Auto) (0.0-15.0) % Eos % (Auto) (0.0-7.0) % Baso % (Auto) (0.0-1.5) % Neut # (Auto) (1.4-5.7) K/uL Lymph # (Auto) (0.6-2.4) K/uL [place] # (Auto) (0.0-0.8) K/uL Eos # (Auto) (0.0-0.7) K/uL Baso # (Auto) (0.0-0.1) K/uL Nucleated RBC % /100WBC Nucleated RBCs # K/uL INR APTT (18.6-31.3) SEC Sodium (136-148) mmol/L Potassium (3.5-5.1) mmol/L Chloride (98-107) mmol/L Carbon Dioxide (21.0-32.0) mmol/L BUN (7.0-18.0) mg/dL Creatinine (0.8-1.3) mg/dL Est Cr Clr Drug Dosing mL/min Estimated GFR (MDRD) ml/min Glucose (74-106) mg/dL Calcium (8.5-10.1) mg/dL Total Bilirubin (0.2-1.0) mg/dL AST (15-37) IU/L ALT (14-63) IU/L Alkaline Phosphatase (46-116) U/L Troponin I (0.000-0.056) ng/mL Total Protein (6.4-8.2) g/dL Albumin (3.4-5.0) g/dL Globulin (2.6-4.0) g/dL Albumin/Globulin Ratio (0.9-1.6) Vitamin B12 458 (193-986) pg/mL Folate 17.80 (8.60-58.90) ng/mL TSH 3rd Generation (0.36-3.74) uIU/mL Urine Opiates Screen NEGATIVE (NEGATIVE) Ur Oxycodone Screen NEGATIVE (NEGATIVE) Urine Methadone Screen NEGATIVE (NEGATIVE) Ur Barbiturates Screen NEGATIVE (NEGATIVE) Ur Phencyclidine Scrn NEGATIVE (NEGATIVE) Ur Amphetamine Screen NEGATIVE (NEGATIVE) U Methamphetamines Scrn NEGATIVE (NEGATIVE) U Benzodiazepines Scrn NEGATIVE (NEGATIVE) U Cocaine Metab Screen NEGATIVE (NEGATIVE) U Marijuana (THC) Screen NEGATIVE (NEGATIVE) Ethyl Alcohol <3 mg/dL 04/18/19 04/18/19 Range/Units 05:07 05:07 WBC 5.92 (4.0-11.0) K/uL RBC 4.49 L (4.50-5.90) M/uL Hgb 14.1 (13.0-17.0) g/dL Hct 41.7 (38.0-50.0) % MCV 92.9 (80.0-98.0) fL MCH 31.4 (27.0-32.0) pg MCHC 33.8 (31.0-37.0) g/dL RDW Std Deviation 42.9 (28.0-62.0) fl RDW Coeff of Amy 13 (11.0-15.0) % Plt Count 274 (150-400) K/uL MPV 9.30 (7.40-12.00) fL Neut % (Auto) 58.8 (48.0-80.0) % Lymph % (Auto) 28.5 (16.0-40.0) % [place] % (Auto) 9.6 (0.0-15.0) % Eos % (Auto) 2.4 (0.0-7.0) % Baso % (Auto) 0.7 (0.0-1.5) % Neut # (Auto) 3.5 (1.4-5.7) K/uL Lymph # (Auto) 1.7 (0.6-2.4) K/uL [place] # (Auto) 0.6 (0.0-0.8) K/uL Eos # (Auto) 0.1 (0.0-0.7) K/uL Baso # (Auto) 0.0 (0.0-0.1) K/uL Nucleated RBC % 0.0 /100WBC Nucleated RBCs # 0 K/uL INR APTT (18.6-31.3) SEC Sodium 142 (136-148) mmol/L Potassium 3.9 (3.5-5.1) mmol/L Chloride 108 H (98-107) mmol/L Carbon Dioxide 25.5 (21.0-32.0) mmol/L BUN 8 (7.0-18.0) mg/dL Creatinine 1.0 (0.8-1.3) mg/dL Est Cr Clr Drug Dosing 85.45 mL/min Estimated GFR (MDRD) > 60.0 ml/min Glucose 89 (74-106) mg/dL Calcium 8.3 L (8.5-10.1) mg/dL Total Bilirubin 0.9 (0.2-1.0) mg/dL AST 18 (15-37) IU/L ALT 22 (14-63) IU/L Alkaline Phosphatase 40 L (46-116) U/L Troponin I (0.000-0.056) ng/mL Total Protein 6.8 (6.4-8.2) g/dL Albumin 3.6 (3.4-5.0) g/dL Globulin 3.2 (2.6-4.0) g/dL Albumin/Globulin Ratio 1.1 (0.9-1.6) Vitamin B12 (193-986) pg/mL Folate (8.60-58.90) ng/mL TSH 3rd Generation (0.36-3.74) uIU/mL Urine Opiates Screen (NEGATIVE) Ur Oxycodone Screen (NEGATIVE) Urine Methadone Screen (NEGATIVE) Ur Barbiturates Screen (NEGATIVE) Ur Phencyclidine Scrn (NEGATIVE) Ur Amphetamine Screen (NEGATIVE) U Methamphetamines Scrn (NEGATIVE) U Benzodiazepines Scrn (NEGATIVE) U Cocaine Metab Screen (NEGATIVE) U Marijuana (THC) Screen (NEGATIVE) Ethyl Alcohol mg/dL Med Orders - Current: Current Medications Acetaminophen (Tylenol) 650 mg PO Q4H PRN PRN Reason: Pain (Mild 1-3)/fever Last Admin: 04/18/19 12:09 Dose: 650 mg Enoxaparin Sodium (Lovenox) 40 mg SUBCUT Q24H [facility] Last Admin: 04/17/19 16:47 Dose: 40 mg Levothyroxine Sodium (Levothyroxine) 112 mcg PO ACBREAKFAST XIANG Last Admin: 04/18/19 08:45 Dose: 112 mcg Levothyroxine Sodium (Levothyroxine) 25 mcg PO ACBREAKFAST XIANG Last Admin: 04/18/19 08:45 Dose: 25 mcg Ondansetron HCl (Zofran Odt) 4 mg PO Q4H PRN PRN Reason: nausea, able to take PO Ondansetron HCl (Zofran) 4 mg IVPUSH Q4H PRN PRN Reason: Nausea Sodium Chloride (Saline Flush) 10 ml FLUSH ASDIRECTED PRN PRN Reason: Keep Vein Open Last Admin: 04/17/19 14:17 Dose: 10 ml Sodium Chloride (Saline Flush) 2.5 ml FLUSH ASDIRECTED PRN PRN Reason: Keep Vein Open Last Admin: 04/17/19 14:17 Dose: 2.5 ml Sodium Chloride (Normal Saline) 10 ml IV ASDIRECTED PRN PRN Reason: IV Use Last Admin: 04/17/19 14:17 Dose: 10 ml Discontinued Medications Gadobenate Dimeglumine (Multihance) 19 ml IVPUSH ONETIME STA Stop: 04/17/19 16:13 Last Admin: 04/17/19 16:13 Dose: 19 ml Sodium Chloride (Normal Saline) 1,000 mls @ 999 mls/hr IV .Bolus ONE Stop: 04/17/19 17:16 Last Admin: 04/17/19 16:47 Dose: 999 mls/hr Levothyroxine Sodium (137 Mcg) 1 each PO ACBREAKFAST XIANG Last Admin: 04/18/19 06:44 Dose: Not Given
--- NOTE | 2019-04-18 14:09 | PCM.SN ---
- Free Text/Narrative Note: MRI brain was normal. Mental status has improved compared to yesterday. He is able to recount what he had for breakfast this morning and conversation with his . He remembered another provider telling him his diagnosis, but could not recall the name. He does not remember me (saw him early yesterday afternoon) , but he does remember the MRI that was done late afternoon. Neuro exam including CN, strength, coordination and gait are normal. Diagnosis is likely transient global amnesia. No further work up recommended at this time. He may return to work.
== END 2019-04-18 13:15 | disposition home or self-care (01) ==
LOC: MW.ED 13:27 → UNDOADMOB 14:33 → MW.MS 14:33
PROVIDERS: ADMIT Internal Medicine; ATTEND Internal Medicine
DX: G45.4 Transient global amnesia (principal); E03.9 Hypothyroidism, unspecified; Z79.899 Other long term (current) drug therapy
CPT/HCPCS: 36415; 70450; 70553; 80053; 80305; 80320; 82607; 82746; 84443; 84484; 85025; 85610; 85730; 93005; 99285; A9270; A9577; J1650; J7040; J7050; 96372; 99284; G0378; G0480